=== PATIENT | female | born 1985 | race African-American/Black ===

== ENCOUNTER 2019-03-07 08:47 | Emergency (ER) | payer MEDICAID ==
[~2019-03-07] VITALS: Ht 170.2 cm; Wt 168.0 kg
[2019-03-07] MEDS ORDERED: KETOROLAC 30MG/ML VIAL IV STA (09:06)
[2019-03-07] MEDS ORDERED: SODIUM CHLORIDE 0.9% 1,000 ML IV ONE (09:06)
[2019-03-07] MEDS ORDERED: METOCLOPRAMIDE HCL 10MG/2ML VIAL IV ONE (09:15)
[2019-03-07 10:55] VITALS: BP 142/84
== END 2019-03-07 10:56 | disposition home or self-care (01) ==
LOC: ER 08:47
DX: R51 Headache (principal); I11.0 Hypertensive heart disease with heart failure; I50.9 Heart failure, unspecified
CPT/HCPCS: 81025; 96361; 96374; 96375; 99283; J1885; J2765; J7030; Z7610

== ENCOUNTER 2024-04-14 05:57 | Inpatient (IN) | payer MEDICAID ==
[2024-04-14] VITALS (9 sets, daily range): BP systolic 152–196; BP diastolic 91–180; PULSE 90–109; RESP 16–35; TEMP 36.61404–37.2252; O2SAT 96–100
[~2024-04-14] VITALS: Ht 170.2 cm; Wt 142.4 kg
[2024-04-14 06:30] LABS: CHLORIDE 107 mEq/L (98-107); POTASSIUM 4.4 mEq/L (3.5-5.1); SODIUM 139 mEq/L (136-145)
[2024-04-14 06:31] LABS: CALCIUM 8.6 mg/dL (8.7-10.4); CARBON DIOXIDE 25 mEq/L (21-32)
[2024-04-14 06:33] LABS: BASOPHILS % 0.6 % (0.0-2.0); EOSINOPHILS % 0.6 % (0.0-5.0); HEMATOCRIT. 40.9 % (36.0-48.0); HEMOGLOBIN. 13.5 g/dL (12.0-16.0); MEAN PLATELET VOLUME 8.3 fl (7.4-10.4); MONOCYTES % 10.6 % (2.0-8.0); NEUTROPHILS % 68.2 % (40.0-76.0); PLATELET 234 x1000/uL (130-400); RED BLOOD CELL COUNT 4.49 mill/uL (4.2-5.4); RED CELL DISTRIBUTION WIDTH 17.5 % (11.6-14.6); WHITE BLOOD COUNT 6.5 x1000/uL (4.5-11.0)
[2024-04-14 06:36] LABS: GLUCOSE 291 mg/dL (70-105); UREA NITROGEN BLOOD 13 mg/dL (9-23)
[2024-04-14 06:38] LABS: ALANINE AMINOTRANSFERASE 12 IU/L (10-49); ALBUMIN 3.7 g/dL (3.2-4.8); ASPARTATE AMINOTRANSFERASE 21 IU/L (<34); BILIRUBIN DIRECT 0.4 mg/dL (<=3.0); BILIRUBIN TOTAL 0.8 mg/dL (0.1-1.0); PROTEIN TOTAL 6.5 g/dL (6.0-8.3)
[2024-04-14 07:12] LABS: TROPONIN I HIGH SENSITIVITY 248 ng/L (3.0-34)
[2024-04-14] MEDS ORDERED: ENOXAPARIN 120MG/0.8ML SYR SUBCUT ONE (07:45)
[2024-04-14] MEDS ORDERED: FUROSEMIDE 100MG/10ML VIAL IVP ONE (07:45)
[2024-04-14] MEDS ORDERED: ASPIRIN 325MG TABLET PO ONE (07:45)
[2024-04-14] MEDS: FUROSEMIDE 40MG/4ML VIAL IVP NR (08:37)
[2024-04-14] MEDS: ENOXAPARIN 120MG/0.8ML SYR SUBCUT NR (08:38)
[2024-04-14] MEDS: ASPIRIN 325MG TABLET PO NR (08:43)
[2024-04-14 09:33] LABS: TROPONIN I HIGH SENSITIVITY 240 ng/L (3.0-34)
[2024-04-14 09:54] LABS: HCG SCREEN NEGATIVE
[2024-04-14] MEDS: FUROSEMIDE 40MG/4ML VIAL IVP SCH (11:00)
[2024-04-14] MEDS ORDERED: IPRATROPIUM/ALBUTEROL 0.5-3(2.5)MG/3ML NEB HHN PRN (11:00)
[2024-04-14] MEDS ORDERED: ONDANSETRON HCL 4MG/2ML INJ IV PRN (11:00)
[2024-04-14] MEDS: CEFTRIAXONE 1GM/50ML 50 ML IV SCH (11:27)
[2024-04-14 17:31] LABS: BG BASE EXCESS 2.8 mmol/L (-2.0-3.0); BG CARBOXYHEMOGLOBIN 0.9 % (0.5-1.5); BG DEOXYHEMOGLOBIN 0.3 % (0.0-5.0); BG METHEMOGLOBIN 0.3 % (0.5-1.5); BG OXYGEN SATURATION 99.7 % (94.0-98.0); BG OXYHEMOGLOBIN 98.5 % (94.0-98.0); BG PCO2 44.9 mmHg (32.0-45.0); BG PH 7.412 (7.350-7.450); BG PO2 271.7 mmHg (83.0-108.0); BG SAMPLE SITE RIGHT RADIAL; BG TOTAL HEMOGLOBIN 13.4 g/dL (12.0-16.0); BG VENT MODE MASK - NRB
[2024-04-14] MEDS ORDERED: DEXTROSE 50% WATER 50ML SYRINGE IV PRN (18:45)
[2024-04-14] MEDS: NIFEDIPINE XL 60MG TAB PO SCH (18:57)
[2024-04-14] MEDS: HYDRALAZINE 20MG/ML VIAL IV PRN (18:59)
[2024-04-14] MEDS: BLOOD SUGAR DIAGNOSTIC STRIP TEST SCH (21:00)
[2024-04-14] MEDS: INSULIN LISPRO 100 UNITS/ML SUBCUT SCH (22:28)
[2024-04-15] VITALS (12 sets, daily range): BP systolic 109–188; BP diastolic 63–131; PULSE 87–107; RESP 17–29; TEMP 36.28068–36.72516; O2SAT 95–100
[2024-04-15 06:34] LABS: CARBON DIOXIDE 29 mEq/L (21-32); CHLORIDE 106 mEq/L (98-107); POTASSIUM 3.7 mEq/L (3.5-5.1); SODIUM 140 mEq/L (136-145)
[2024-04-15 06:35] LABS: CALCIUM 9.1 mg/dL (8.7-10.4)
[2024-04-15 06:39] LABS: CREATININE 0.8 mg/dL (0.6-1.0)
[2024-04-15 06:40] LABS: GLUCOSE 186 mg/dL (70-105); UREA NITROGEN BLOOD 11 mg/dL (9-23)
[2024-04-15] MEDS: ACETAMINOPHEN 325MG TABLET PO PRN (08:09)
[2024-04-15] MEDS: CEFTRIAXONE 1GM/50ML 50 ML IV SCH (11:17)
[2024-04-15] MEDS: DILTIAZEM HCL 30MG TABLET PO SCH (17:54)
[2024-04-15 21:48] LABS: *AMPHETAMINES SCREEN URINE NEGATIVE (NEGATIVE); *BARBITURATES SCREEN URINE NEGATIVE (NEGATIVE); *BENZODIAZEPINES SCREEN URINE NEGATIVE (NEGATIVE); *COCAINE SCREEN URINE NEGATIVE (NEGATIVE); CANNABINOID URINE SCREEN NEGATIVE (NEGATIVE); ECSTASY MDMA SCREEN URINE NEGATIVE (NEGATIVE); METHADONE URINE SCREEN NEGATIVE (NEGATIVE); OPIATES URINE SCREEN NEGATIVE (NEGATIVE); PHENCYCLIDINE URINE SCREEN PRESUMTIVE POSITIVE (NEGATIVE)
[2024-04-15 22:01] LABS: CLARITY URINE CLEAR (CLEAR); COLOR URINE YELLOW (YELLOW); GLUCOSE URINE NEGATIVE (NEGATIVE); KETONES URINE NEGATIVE (NEGATIVE); LEUKOCYTE ESTERASE URINE TRACE (NEGATIVE); NITRITE URINE NEGATIVE (NEGATIVE); OCCULT BLOOD URINE NEGATIVE (NEGATIVE); PROTEIN URINE NEGATIVE (NEGATIVE); SPECIFIC GRAVITY URINE 1.013 (1.005-1.030)
[2024-04-15 22:23] LABS: RBC URINE NONE SEEN /hpf (0-2); WBC URINE 0-2 /hpf (0-2)
[2024-04-15 22:24] LABS: BACTERIA URINE NONE SEEN; SQUAMOUS EPITHELIAL CELL URINE 2+ /lpf (RARE/1+); YEAST URINE NONE SEEN
[2024-04-16] VITALS (8 sets, daily range): BP systolic 102–193; BP diastolic 82–160; PULSE 88–103; RESP 18–28; TEMP 36.6696–36.78072; O2SAT 95–100
[2024-04-16] MEDS: CARVEDILOL 6.25 MG TABLET PO SCH (13:54)
== END 2024-04-16 15:15 | disposition left against medical advice (07) | DRG 194 ==
LOC: ER 06:07 → 7WST 07:48 → EDBEDREQSVC 07:51 → EDBEDREQ 07:51 → EDBEDREQTM 07:51 → EDBEDREQSVC 10:21 → ER 15:16 → 5EST 17:27
PROVIDERS: ADMIT Internal Medicine; ATTEND Internal Medicine
PROC: 5A09357 Assistance with Respiratory Ventilation, Less than 24 Consecutive Hours, Continuous Positive Airway Pressure (ICD-10-PCS; principal; 2024-04-14)
DX: I11.0 Hypertensive heart disease with heart failure (principal); J96.00 Acute respiratory failure, unspecified whether with hypoxia or hypercapnia; K74.60 Unspecified cirrhosis of liver; I50.43 Acute on chronic combined systolic (congestive) and diastolic (congestive) heart failure; E11.65 Type 2 diabetes mellitus with hyperglycemia; E66.01 Morbid (severe) obesity due to excess calories; Z68.42 Body mass index [BMI] 45.0-49.9, adult; F19.90 Other psychoactive substance use, unspecified, uncomplicated; Z53.29 Procedure and treatment not carried out because of patient's decision for other reasons; Z98.891 History of uterine scar from previous surgery; Z91.148 Patient's other noncompliance with medication regimen for other reason; Z88.1 Allergy status to other antibiotic agents; Z88.5 Allergy status to narcotic agent
CPT/HCPCS: 36415; 36600; 71045; 74176; 80048; 80076; 80305; 81003; 82375; 82805; 82962; 83036; 84484; 84703; 85025; 93005; 93306; 94660; 99291; J0360; J0696; J1650; J1815; J1940